=== PATIENT | female | born 1960 | race Caucasian/White ===

== ENCOUNTER 2016-07-18 15:11 | Emergency (ER) | payer SELFPAY ==
[~2016-07-18] VITALS: Ht 170.2 cm; Wt 83.0 kg
[2016-07-18 15:15] VITALS: BP 138/83; PULSE 101; RESP 16; TEMP 98.1; O2SAT 96
[2016-07-18] MEDS ORDERED: AMBI5TAB PO (15:24)
--- NOTE | 2016-07-18 15:46 | PD ---
HPI Chief Complaint: GI Complaint Time Seen by Provider: 15:18 Travel History International Travel<30 days: No Contact w/Intl Traveler<30days: No Traveled to known affect area: No History of Present Illness HPI 55-year-old woman who presents to the emergency department complaining of epigastric abdominal pain with increased indigestion symptoms some belching. She's had nausea as well. Symptoms been ongoing for the past 2 days. She's had trouble with some food sensitivities in the past having avoid spicy foods for indigestion but never bad enough that she had to take medicine, never bad enough that she has to doctor. Only abdominal surgical histories a tubal ligation in the past. No history of gallbladder problems. No other complaints. History Past Medical History Medical History: Denies Significant Hx Tetanus Vaccination: < 5 Years Influenza Vaccination: No Social History Alcohol Use: Yes (RARE) Tobacco Use: No Allergies-Medications (Allergen,Severity, Reaction): Coded Allergies: Penicillin (Verified Allergy, Severe, 07/18/16) Reported Meds & Prescriptions Reported Meds & Active Scripts Active Reported Ambien (Zolpidem Tartrate) 5 Mg Tab 5 Mg PO HS PRN Review of Systems Except as stated in HPI: all other systems reviewed are Neg Physical Exam Narrative GENERAL: Well-appearing 55-year-old woman, no acute distress. SKIN: Warm and dry. CARDIOVASCULAR: Regular rate and rhythm. No murmur appreciated. RESPIRATORY: No accessory muscle use. Clear to auscultation. Breath sounds equal bilaterally. GASTROINTESTINAL: Abdomen is flat and soft. Moderate epigastric tenderness. No right upper quadrant tenderness. Negative Horton's. MUSCULOSKELETAL: No obvious deformities. No edema. NEUROLOGICAL: Awake and alert. No obvious cranial nerve deficits. Motor grossly within normal limits. Normal speech. PSYCHIATRIC: Appropriate mood and affect; insight and judgment normal. Data Data Last Documented VS Vital Signs Date Time Temp Pulse Resp B/P Pulse Ox O2 Delivery O2 Flow Rate FiO2 07/18/16 15:15 98.1 101 16 138/83 96 Orders Complete Blood Count With Diff (07/18/16 15:27) Comprehensive Metabolic Panel (07/18/16 15:27) Lipase (07/18/16 15:27) Iv Access Insert/Monitor (07/18/16 15:27) Ed Poc Ultrasound (07/18/16 ) [facility] Medical Decision Making Medical Screen Exam Complete: Yes Emergency Medical Condition: Yes Differential Diagnosis Gastritis, peptic ulcer disease, cholecystitis, pancreatitis, other Narrative Course Medical decision making INITIAL: 55-year-old woman presents emergent department with epigastric pain and indigestion symptoms suggestive of gastritis. She does not take NSAIDs. Strength on-call occasionally. She does not really had similar problems in the past. She has no right upper quadrant tenderness. Poorly controlled some of the gallbladder is unremarkable. We'll check labs. Recommended supportive treatment with ranitidine. Procedures Procedure Narrative Point of care ultrasound: Focus transabdominal ultrasounds perform immediate the bedside for the purpose of evaluating for hepatobiliary pathology. Limited views were obtained of the gallbladder is normal-appearing, there is no collateral thickening, pericholecystic fluid, or gallstones. Diagnosis Primary Impression: Gastritis Patient Instructions: General Instructions Additional Instructions: Take ranitidine as prescribed. Avoid NSAIDs and alcohol until symptoms resolve. Follow-up with a primary physician if you're not feel completely well in the next 2-3 weeks. Return to the emergency department for any new or worsening symptoms. Med/Other Pt SpecificInfo: Prescription(s) given Scripts Ranitidine 150 Mg [id number] Mg PO BID #60 CAP Prov:Jonathan Friedman MD 07/18/16 Disposition: 01 DISCHARGE HOME Condition: Stable Jonathan Friedman MD Jul 18, 2016 15:46
[2016-07-18] MEDS ORDERED: RANI150C PO (15:54)
[2016-07-18 16:06] LABS: AUTOMATED NEUTROPHIL # 4.6 TH/MM3 (1.8-7.7); BASOPHIL % 0.7 % (0.0-2.0); EOSINOPHIL # 0.1 TH/MM3 (0-0.4); EOSINOPHIL % 1.5 % (0.0-4.0); HEMATOCRIT 43.1 % (35.0-46.0); HEMO FLAGS DIFF FINAL; LYMPH % 23.6 % (9.0-44.0); LYMPHOCYTE # 1.6 TH/MM3 (1.0-4.8); MEAN CELL VOLUME 89.9 FL (80.0-100.0); MEAN CORPUSCULAR HEMOGLOBIN 29.5 PG (27.0-34.0); MEAN CORPUSCULAR HGB CONC 32.9 % (32.0-36.0); MONO % 9.4 % (0.0-8.0); NEUT % 64.8 % (16.0-70.0); PLATELET COUNT 264 TH/MM3 (150-450); RED BLOOD COUNT 4.79 MIL/MM3 (4.00-5.30); RED CELL DISTRIBUTION WIDTH 13.1 % (11.6-17.2)
[2016-07-18 16:16] LABS: CHLORIDE 105 MEQ/L (98-107); POTASSIUM 3.8 MEQ/L (3.5-5.1); SODIUM (NA) 141 MEQ/L (136-145)
[2016-07-18 16:19] LABS: ANION GAP 10 MEQ/L (5-15); BICARBONATE 26.5 MEQ/L (21.0-32.0)
[2016-07-18 16:20] LABS: BLOOD UREA NITROGEN 11 MG/DL (7-18)
[2016-07-18 16:22] LABS: ALT (GPT) 24 U/L (10-53); AST (GOT) 19 U/L (15-37); GLOMERULAR FILTRATION RATE 62 ML/MIN (>89)
[2016-07-18 16:24] LABS: TOTAL BILIRUBIN ADULT 0.5 MG/DL (0.2-1.0)
[2016-07-18 16:25] LABS: ALKALINE PHOSPHATASE 81 U/L (45-117)
--- NOTE | 2016-07-18 16:49 | PD ---
Physical Exam Narrative Received sign out to follow up with labs and reevaluate. 55yo F with epigastric abdominal pain for 2 days. Denies any nausea or vomiting but has decreased appetite. Labs reviewed, no leukocytosis. Lipase mildly elevated at 459. Pt given protonix with improvement of pain. Pain is localized in epigastric region. No rebound tenderness or guarding. Pt tolerating PO. Return precautions given. Data Data Last Documented VS Vital Signs Date Time Temp Pulse Resp B/P Pulse Ox O2 Delivery O2 Flow Rate FiO2 07/18/16 17:08 86 16 126/63 100 Room Air 07/18/16 15:15 98.1 Orders Complete Blood Count With Diff (07/18/16 15:27) Comprehensive Metabolic Panel (07/18/16 15:27) Lipase (07/18/16 15:27) Iv Access Insert/Monitor (07/18/16 15:27) Ed Poc Ultrasound (07/18/16 ) Pantoprazole (Protonix) (07/18/16 17:00) Labs Laboratory Tests Test 07/18/16 16:00 White Blood Count 7.0 TH/MM3 Red Blood Count 4.79 MIL/MM3 Hemoglobin 14.2 GM/DL Hematocrit 43.1 % Mean Corpuscular Volume 89.9 FL Mean Corpuscular Hemoglobin 29.5 PG Mean Corpuscular Hemoglobin 32.9 % Concent Red Cell Distribution Width 13.1 % Platelet Count 264 TH/MM3 Mean Platelet Volume 8.6 FL Neutrophils (%) (Auto) 64.8 % Lymphocytes (%) (Auto) 23.6 % Monocytes (%) (Auto) 9.4 % Eosinophils (%) (Auto) 1.5 % Basophils (%) (Auto) 0.7 % Neutrophils # (Auto) 4.6 TH/MM3 Lymphocytes # (Auto) 1.6 TH/MM3 Monocytes # (Auto) 0.7 TH/MM3 Eosinophils # (Auto) 0.1 TH/MM3 Basophils # (Auto) 0.0 TH/MM3 CBC Comment DIFF FINAL Differential Comment Sodium Level 141 MEQ/L Potassium Level 3.8 MEQ/L Chloride Level 105 MEQ/L Carbon Dioxide Level 26.5 MEQ/L Anion Gap 10 MEQ/L Blood Urea Nitrogen 11 MG/DL Creatinine 0.94 MG/DL Estimat Glomerular Filtration 62 ML/MIN Rate Random Glucose 98 MG/DL Calcium Level 8.8 MG/DL Total Bilirubin 0.5 MG/DL Aspartate Amino Transf 19 U/L (AST/SGOT) Alanine Aminotransferase 24 U/L (ALT/SGPT) Alkaline Phosphatase 81 U/L Total Protein 7.6 GM/DL Albumin 4.2 GM/DL Lipase 459 U/L [facility] Supervised Visit with LUDWIG: No Diagnosis Primary Impression: Gastritis Qualified Code: K29.70 - Gastritis without bleeding, unspecified chronicity, unspecified gastritis type Patient Instructions: General Instructions Departure Forms: Tests/Procedures Additional Instruction: Take ranitidine as prescribed. Avoid NSAIDs and alcohol until symptoms resolve. Follow-up with a primary physician if you're not feel completely well in the next 2-3 weeks. Return to the emergency department for any new or worsening symptoms. Scripts Ranitidine 150 Mg [id number] Mg PO BID #60 CAP Prov:Jonathan Friedman MD 07/18/16 Disposition: 01 DISCHARGE HOME Condition: Stable Chuyita Mathews DO Jul 18, 2016 16:49
[2016-07-18] MEDS ORDERED: PANTOPRAZOLE SOD 40 MG DELAYED RELEASE TAB PO ONE (17:00)
[2016-07-18 17:08] VITALS: BP 126/63; PULSE 86; RESP 16; O2SAT 100
== END 2016-07-18 17:21 | disposition home or self-care (01) ==
LOC: PHEFT 15:11
DX: K29.70 Gastritis, unspecified, without bleeding (principal)
CPT/HCPCS: 80053; 83690; 85025; 99284